=== PATIENT | female | born 1995 | race Caucasian/White ===

== ENCOUNTER 2016-08-22 12:09 | Outpatient (CLI) | payer OTHER ==
--- NOTE | 2016-08-22 13:34 | XRay Report ---
CHEST 2 VIEWS INDICATION: Inflammatory polyarthropathy. COMPARISON: None similar at this institution. FINDINGS: PA and lateral chest radiographs demonstrate normal cardiomediastinal silhouette. Clear lungs. Intact bones. CONCLUSION: No acute disease in the chest. Thank you for the opportunity to participate in this patient's care.
== END 2016-08-22 12:10 | disposition home or self-care (01) ==
LOC: XRAY 12:09
PROVIDERS: ATTEND Internal Medicine Rheumatology
DX: M06.4 Inflammatory polyarthropathy (principal)
CPT/HCPCS: 71020